=== PATIENT | male | born 1975 | race Caucasian/White ===

== ENCOUNTER 2017-04-04 13:51 | Emergency (ER) | payer OTHER ==
[~2017-04-04] VITALS: Ht 175.3 cm; Wt 106.6 kg
[2017-04-04 13:51] VITALS: BP_SYST 154
[2017-04-04] MEDS ORDERED: SULFAMETHOXAZOLE/TRIMETHOPR DS 1 TABLET PO ONE (14:45)
[2017-04-04] MEDS ORDERED: LIDOCAINE/EPI 2% 1:100000 20 ML VIAL IJ ONE (14:45)
[2017-04-04] MEDS ORDERED: BACITRACIN 1 GM OINT TP ONE (14:45)
[2017-04-04] MEDS ORDERED: ceFAZolin SODIUM 1 GM in D5W 50 ML IV ONE (14:45)
[2017-04-04] MEDS ORDERED: LIDOCAINE/PRILOCAINE 5 GM CREAM (EMLA) TP ONE (14:45)
[2017-04-04] MEDS ORDERED: ceFAZolin SODIUM 1 GM VIAL ONE (15:06)
[2017-04-04] MEDS ORDERED: SODIUM BICARBONATE 8.4% VIAL 50 MEQ/50 ML VIAL INJ ONE (15:15)
[2017-04-04] MEDS ORDERED: fentaNYL CITRATE/PF 100 MCG/2 ML AMP IVP ONE (15:15)
[2017-04-04] MEDS ORDERED: ONDANSETRON HCL 4 MG/2 ML VIAL IVP ONE (15:45)
[2017-04-04 16:02] VITALS: BP_SYST 148
== END 2017-04-04 16:02 | disposition home or self-care (01) ==
LOC: SED 13:51
DX: L02.31 Cutaneous abscess of buttock (principal); F17.210 Nicotine dependence, cigarettes, uncomplicated; Z71.6 Tobacco abuse counseling
CPT/HCPCS: 10060; 96365; 96375; 99284; J0690; J3010

== ENCOUNTER 2017-04-06 14:35 | Emergency (ER) | payer OTHER ==
[~2017-04-06] VITALS: Ht 175.3 cm; Wt 104.3 kg
[2017-04-06 14:35] VITALS: BP_SYST 139
--- NOTE | 2017-04-06 14:35 | NUR ---
BROUGHT BACK TO BED #8 AND TRIAGED. REPORT GIVEN TO DARLING
--- NOTE | 2017-04-06 14:40 | NUR ---
Patient awake, alert and oriented x4, brought self from home for follow up with infection and drain visit two days ago. Patient verbalized, "I feel fine, pain is at a 1/10." Pt denies other complaints/injuries, none noted.
--- NOTE | 2017-04-06 15:20 | NUR ---
Trinh Velarde [employer] at bedside examining patient.
[2017-04-06 15:35] VITALS: BP_SYST 139
--- NOTE | 2017-04-06 15:35 | NUR ---
Patient given written and verbal discharge instructions and verbalizes understanding. Patient left ER without signing discharge paperwork. ER MD discussed with patient the results and treatment provided. Patient in stable condition. ID arm band removed. Opportunity for questions provided and answered.
== END 2017-04-06 15:35 | disposition home or self-care (01) ==
LOC: SED 14:35
DX: Z48.01 Encounter for change or removal of surgical wound dressing (principal); F17.210 Nicotine dependence, cigarettes, uncomplicated; Z71.6 Tobacco abuse counseling
CPT/HCPCS: 99283